=== PATIENT | female | born 1965 | race Caucasian/White ===

== ENCOUNTER 2022-05-06 11:34 | Emergency (ER) | payer BC, OTHER ==
--- NOTE | 2022-05-06 11:55 | ED Respiratory ---
General Chief Complaint: Respiratory Problems Stated Complaint: SOB Source: patient Exam Limitations: no limitations History of Present Illness Date Seen by Provider: May 06, 2022 Time Seen by Provider: 11:35 Initial Comments 56-year-old female with past medical history most notably for asthma with continued tobacco use coming in as a referral from [facility] clinic in [place] due to chest pain and shortness of breath. She has had the chest discomfort for a couple weeks off and on. It is mild, sharp, and nothing really seems to make it better or worse. Associated with shortness of breath which she attributes to her asthma. She uses nebulizers regularly, and this typically helps with it. She says her oxygen ranges between 89 to 94%, better after nebulizers. She has a productive cough at all times with clear sputum which has been chronic for a long time. Denies any cardiac history, denies any history of DVT or PE, denies any new leg swelling or pain, denies hemoptysis, no recent surgeries, does not take any blood thinners. She states she had blood work done yesterday which was "normal for her chest pain, EKG yesterday was normal, and chest x-ray this morning was normal as well. She was referred here for "things they cannot see on chest x-ray". Allergies and Home Medications Allergies Coded Allergies: Penicillins (Verified Allergy, Unknown, 05/06/22) codeine (Verified Allergy, Unknown, 05/06/22) Patient Home Medication List Home Medication List Reviewed: Yes Azithromycin (Azithromycin) 250 Mg Tablet, 250 MG PO UD Prescribed by: HERB GAMEZ on 05/06/22 1252 Methylprednisolone (Methylprednisolone Dose Pack) 4 Mg Tab.ds.pk, 4 MG PO UD Prescribed by: HERB GAMEZ on 05/06/22 1252 Review of Systems Review of Systems Constitutional: No fever EENTM: No blurred vision Respiratory: cough, short of breath Cardiovascular: chest pain Gastrointestinal: no symptoms reported Genitourinary: no symptoms reported Musculoskeletal: no symptoms reported Skin: no symptoms reported Psychiatric/Neurological: No Symptoms Reported Hematologic/Lymphatic: No Symptoms Reported Immunological/Allergic: no symptoms reported All Other Systems Reviewed Negative Unless Noted: Yes Past [id number] Hx Patient Social History Tobacco Use?: Yes Tobacco type used: Cigarettes Past Medical History Surgeries: Yes (rhinoplasty) Physical Exam Vital Signs - First Documented 05/06/22 11:43 Temp 36.0 Pulse 88 Resp 16 B/P (MAP) 136/94 (108) Pulse Ox 96 O2 Delivery Room Air Capillary Refill : Height: '" Weight: lbs. oz. kg; BMI Method: General Appearance: WD/WN, no apparent distress Eyes: Bilateral Eye Normal Inspection HEENT: PERRL/EOMI, normal ENT inspection, pharynx normal Neck: non-tender, full range of motion, supple, normal inspection Respiratory: chest non-tender, no respiratory distress, no accessory muscle use, wheezing Cardiovascular: regular rate, rhythm, no edema, no murmur Gastrointestinal: normal bowel sounds, non tender, soft; No distended, No g uarding, No rebound Extremities: normal range of motion, non-tender, normal inspection, no pedal edema, no calf tenderness, normal capillary refill Neurologic/Psychiatric: no motor/sensory deficits, alert, normal mood/affect Skin: normal color, warm/dry Lymphatic: no adenopathy Progress/Results/Core Measures Suspected Sepsis SIRS Temperature: Pulse: Respiratory Rate: Laboratory Tests 05/06/22 11:55: White Blood Count 8.6 Blood Pressure / Mean: Laboratory Tests 05/06/22 11:55: Creatinine 0.72, INR Comment 0.9, Platelet Count 278, Total Bilirubin 0.3 Results/Orders Lab Results Laboratory Tests Test 05/06/22 11:55 Range/Units White Blood Count 8.6 4.3-11.0 10^3/uL Red Blood Count 4.68 3.80-5.11 10^6/uL Hemoglobin 14.9 11.5-16.0 g/dL Hematocrit 44 35-52 % Mean Corpuscular Volume 93 80-99 fL Mean Corpuscular Hemoglobin 32 25-34 pg Mean Corpuscular Hemoglobin Concent 34 32-36 g/dL Red Cell Distribution Width 12.2 10.0-14.5 % Platelet Count 278 130-400 10^3/uL Mean Platelet Volume 10.9 9.0-12.2 fL Immature Granulocyte % (Auto) 0 % Neutrophils (%) (Auto) 62 42-75 % Lymphocytes (%) (Auto) 29 12-44 % Monocytes (%) (Auto) 5 0-12 % Eosinophils (%) (Auto) 3 0-10 % Basophils (%) (Auto) 1 0-10 % Neutrophils # (Auto) 5.4 1.8-7.8 10^3/uL Lymphocytes # (Auto) 2.5 1.0-4.0 10^3/uL Monocytes # (Auto) 0.5 0.0-1.0 10^3/uL Eosinophils # (Auto) 0.2 0.0-0.3 10^3/uL Basophils # (Auto) 0.1 0.0-0.1 10^3/uL Immature Granulocyte # (Auto) 0.0 0.0-0.1 10^3/uL Prothrombin Time 12.8 12.2-14.7 SEC INR Comment 0.9 0.8-1.4 Activated Partial Thromboplast Time 28 24-35 SEC D-Dimer 0.26 0.00-0.49 UG/ML Sodium Level 141 135-145 MMOL/L Potassium Level 4.5 3.6-5.0 MMOL/L Chloride Level 103 98-107 MMOL/L Carbon Dioxide Level 26 21-32 MMOL/L Anion Gap 12 5-14 MMOL/L Blood Urea Nitrogen 10 7-18 MG/DL Creatinine 0.72 0.60-1.30 MG/DL Estimat Glomerular Filtration Rate 99 BUN/Creatinine Ratio 14 Glucose Level 109 H 70-105 MG/DL Calcium Level 9.6 8.5-10.1 MG/DL Corrected Calcium 9.4 8.5-10.1 MG/DL Magnesium Level 1.8 1.6-2.4 MG/DL Total Bilirubin 0.3 0.1-1.0 MG/DL Aspartate Amino Transf (AST/SGOT) 18 5-34 U/L Alanine Aminotransferase (ALT/SGPT) 25 0-55 U/L Alkaline Phosphatase 84 40-136 U/L Troponin I < 0.30 <0.30 NG/ML Pro-B-Type Natriuretic Peptide 137.8 H <125.0 PG/ML Total Protein 7.0 6.4-8.2 GM/DL Albumin 4.3 3.2-4.5 GM/DL Lipase 31 8-78 U/L My Orders Orders - HERB GAMEZ MD Cbc With Automated Diff (05/06/22 11:51) Magnesium (05/06/22 11:51) Ekg Tracing (05/06/22 11:51) Comprehensive Metabolic Panel (05/06/22 11:51) Protime With Inr (05/06/22 11:51) Partial Thromboplastin Time (05/06/22 11:51) O2 (05/06/22 11:51) Monitor-Rhythm Ecg Trace Only (05/06/22 11:51) Ed Iv/Invasive Line Start (05/06/22 11:51) Lipase (05/06/22 11:51) Fibrin Degradation Products (05/06/22 11:51) Troponin I Fs (05/06/22 11:51) Probnp Fs (05/06/22 11:51) Aspirin Chewable Tablet (Baby Aspirin Ch (05/06/22 12:00) Albuterol/Ipra Inhalation Soln (Duoneb I (05/06/22 12:00) Prednisone Tablet (Deltasone Tablet) (05/06/22 12:00) Medications Given in ED Current Medications Medications Dose Ordered Sig/Crissy Route Start Time Stop Time Status Last Admin Dose Admin Albuterol/ Ipratropium 3 ml ONCE ONCE INH 05/06/22 12:00 05/06/22 12:01 DC 05/06/22 12:11 3 ML Aspirin 324 mg ONCE ONCE PO 05/06/22 12:00 05/06/22 12:01 DC 05/06/22 12:11 324 MG Prednisone 40 mg ONCE ONCE PO 05/06/22 12:00 05/06/22 12:01 DC 05/06/22 12:11 40 MG Vital Signs/I&O 05/06/22 11:43 Temp 36.0 Pulse 88 Resp 16 B/P (MAP) 136/94 (108) Pulse Ox 96 O2 Delivery Room Air Capillary Refill : Progress Note : Progress Note 56yoF with above history coming in due to SOA and chest discomfort for a couple of weeks. ABCs intact and VSS on presentation. Physical exam with bilateral wheezing. Given a duoneb here as well as prednisone given her asthma history. EKG with no acute ischemic changes. An IV was placed and basic labs were obtained including cardiac biomarkers. Troponin negative, BNP is elevated indicating increased left ventricular end diastolic dilatation which may be seen in CHF. Close to normal, D-dimer normal. She already had a chest x-ray earlier today which was reportedly normal. Symptoms improved after the DuoNeb. Clinically this seems to be more related to an asthma exacerbation. We will send her appropriate medications for such. Given her family history of heart failure however, we will have her follow-up with a flanging roll operator as an outpatient. ECG Initial ECG Impression Date: May 06, 2022 Initial ECG Impression Time: 12:07 Initial ECG Rate: 69 Initial ECG Rhythm: Normal Sinus Comment Narrow QRS, normal axis, no significant ST changes or T wave abnormality Departure Impression Primary Impression: Asthma exacerbation Qualified Codes: J45.31 - Mild persistent asthma with (acute) exacerbation Disposition: 01 HOME, SELF-CARE Condition: Stable Departure-Patient Inst. Decision time for Depature: 12:51 Referrals: ELYSIA LEON APRN (PCP) Primary Care Physician JACKY VALENCIA MD (Family) Primary Care Physician SHARRON GAITAN JR, MD Patient Instructions: Asthma in Adults Add. Discharge Instructions: Based on the wheezing on your exam, I believe this is an asthma exacerbation. Based on your lab work, it does not appear like you are having a heart attack or any type of blood clot. You will be on an antibiotic and steroids for the next several days. I do recommend following up with Dr. Gaitan, the flanging roll operator. I believe he does rotate through [facility] at least 1 day a week. Start your steroid pack tomorrow since you already had a dose today. Scripts Methylprednisolone (Methylprednisolone Dose Pack) 4 Mg Tab.ds.pk 4 MG PO UD for 6 Days, #21 PKG PER DOSE PACK INSTRUCTIONS Prov: HERB GAMEZ MD 05/06/22 Azithromycin (Azithromycin) 250 Mg Tablet 250 MG PO UD, #6 TAB TAKE 2 TABLETS ON DAY ONE THEN TAKE 1 TABLET DAILY FOR FOUR MORE DAYS Prov: HERB GAMEZ MD 05/06/22 Work/School Note: Work Release Form Date Seen in the Emergency Department: May 06, 2022 Return to Work: May 08, 2022 Restrictions: No Restrictions HERB GAMEZ MD May 06, 2022 11:55
[2022-05-06] MEDS ORDERED: RT-ALBUTEROL/IPRATROPIUM 3 ML (DUONEB) VIAL INH ONE (12:00)
[2022-05-06] MEDS ORDERED: predniSONE 20 MG TAB PO ONE (12:00)
[2022-05-06] MEDS ORDERED: ASPIRIN 81 MG CHEW (CHILDREN'S ASA) PO ONE (12:00)
[2022-05-06 12:02] LABS: BASOPHILS # (AUTO) 0.1 10^3/uL (0.0-0.1); BASOPHILS % (AUTO) 1 % (0-10); EOSINOPHILS # (AUTO) 0.2 10^3/uL (0.0-0.3); EOSINOPHILS % (AUTO) 3 % (0-10); HEMATOCRIT 44 % (35-52); HEMOGLOBIN 14.9 g/dL (11.5-16.0); LYMPHOCYTES # (AUTO) 2.5 10^3/uL (1.0-4.0); LYMPHOCYTES % (AUTO) 29 % (12-44); MEAN CORPUSCULAR HEMOGLOBIN 32 pg (25-34); MEAN CORPUSCULAR HGB CONC 34 g/dL (32-36); MEAN CORPUSCULAR VOLUME 93 fL (80-99); MEAN PLATELET VOLUME 10.9 fL (9.0-12.2); MONOCYTES # (AUTO) 0.5 10^3/uL (0.0-1.0); MONOCYTES % (AUTO) 5 % (0-12); NEUTROPHILS # (AUTO) 5.4 10^3/uL (1.8-7.8); NEUTROPHILS % (AUTO) 62 % (42-75); PLATELET COUNT 278 10^3/uL (130-400); WHITE BLOOD COUNT 8.6 10^3/uL (4.3-11.0)
[2022-05-06 12:36] LABS: BILIRUBIN,TOTAL 0.3 MG/DL (0.1-1.0); CALCIUM 9.6 MG/DL (8.5-10.1); CREATININE SERUM 0.72 MG/DL (0.60-1.30); MAGNESIUM 1.8 MG/DL (1.6-2.4); POTASSIUM 4.5 MMOL/L (3.6-5.0)
[2022-05-06 12:37] LABS: ALBUMIN 4.3 GM/DL (3.2-4.5)
[2022-05-06 12:40] LABS: INR 0.9 (0.8-1.4); PROTHROMBIN TIME PATIENT 12.8 SEC (12.2-14.7)
[2022-05-06] MEDS ORDERED: METH4TAB10 PO (12:52)
[2022-05-06] MEDS ORDERED: AZIT250T12 PO (12:52)
[2022-05-06 13:00] VITALS: BP 136/94
== END 2022-05-06 13:00 | disposition home or self-care (01) ==
LOC: ER FS 11:38
DX: J45.901 Unspecified asthma with (acute) exacerbation (principal); R79.89 Other specified abnormal findings of blood chemistry; F17.210 Nicotine dependence, cigarettes, uncomplicated
CPT/HCPCS: 36415; 80053; 83690; 83735; 83880; 84484; 85025; 85379; 85610; 85730; 93041; 94640